=== PATIENT | female | born 1950 | race Caucasian/White ===

== ENCOUNTER → 2017-11-17 | Outpatient (CLI) | payer OTHER, BC | LOC: BHFA 13:00 | PROVIDERS: ATTEND Internal Medicine Cardiovascular Disease | DX: R07.89 Other chest pain (principal) ==

== ENCOUNTER → 2017-11-28 | Outpatient (CLI) | payer OTHER, BC | LOC: BHFA 14:00 | PROVIDERS: ATTEND Internal Medicine Cardiovascular Disease | DX: R07.89 Other chest pain (principal); R94.30 Abnormal result of cardiovascular function study, unspecified | CPT/HCPCS: 78452; 93017; A9500; J2785 ==

== ENCOUNTER 2017-12-24 09:46 | Day surgery (SDC) | payer OTHER, BC ==
[2017-12-24] MEDS ORDERED: ATROPINE SULFATE 1 MG/10 ML SYR IVP ONE (09:49)
[2017-12-24] MEDS ORDERED: MIDAZOLAM 2 MG/2 ML VIAL IVP ONE (09:49)
[2017-12-24] MEDS ORDERED: NS 500 ML IV ONE (09:49)
[2017-12-24] MEDS ORDERED: BENZOCAINE UNIT DOSE SPRAY HURRICAINE MM ONE (09:49)
[2017-12-24] MEDS ORDERED: fentaNYL 100 MCG/2 ML INJ IVP ONE (09:49)
--- NOTE | 2017-12-24 10:11 | CPEKG ---
Heart Rate: 83 RR Interval: 723 QRSD Interval: 78 QT Interval: 400 QTC Interval: 470 QRS [place]: 61 T Wave [place]: 31 EKG Severity - ABNORMAL ECG - EKG Impression: ATRIAL FIBRILLATION, V-RATE 66-97 EKG Impression: LOW VOLTAGE IN FRONTAL LEADS Electronically Signed By: Dmitri Aparicio 24-Dec-2017 11:16:38
[2017-12-24 10:36] LABS: INR 1.57 (0.83-1.16); PROTIME(PATIENT) 18.9 SEC (12.0-15.0)
[2017-12-24] MEDS ORDERED: ENOXAPARIN 80 MG/0.8 ML SYR SC ONE (11:00)
[2017-12-24] MEDS ORDERED: NALOXONE HCL 0.4 MG/ML INJ IVP PRN (11:28)
--- NOTE | 2017-12-24 11:28 | PDANEPAE ---
ANE Past Medical History - Pulmonary History Hx Sleep Apnea: No ANE Review of Systems Review of Systems: ANE Patient History - Allergies Allergies/Adverse Reactions: No Known Allergies Allergy (Unverified 12/24/17 09:49) - Home Medications Home Medications: Albuterol Sulfate 12/24/17 [Last Taken Unknown] Lipitor 12/24/17 [Last Taken 12/23/17 08:00] Sertraline HCl 12/24/17 [Last Taken 12/23/17 08:00] Warfarin Sodium PO DAILY 12/24/17 [Last Taken 12/23/17 21:00] Wellbutrin Sr 12/24/17 [Last Taken 12/23/17 08:00] - Smoking Hx Smoking Status: Former smoker ANE Labs/Vital Signs - Labs Result Diagrams: 12/24/17 10:00 - Vital Signs Height: 173 cm Weight: 78.9 kg ANE Physical Exam - Airway Neck exam: FROM Mallampati Score: Class 1 Mouth exam: dentures - Pulmonary Pulmonary: no respiratory distress, no rales or rhonchi, reduced air movement - Cardiovascular Cardiovascular: irregularly irregular - ASA Status ASA Status: III ANE Anesthesia Plan Anesthesia Plan: GA with mask
[2017-12-24] MEDS ORDERED: PROPOFOL 200 MG/20 ML VIAL ONE (11:31)
--- NOTE | 2017-12-24 11:34 | PDGENHP ---
History & Physical Chief Complaint: symptomatic afib Relevant Physical Exam: s1s2 irreg cta ao3 Cardiorespiratory Assessment: for jennifer + cv. inr subtherapeutic, pt will need to be on lovenox until inr >2
--- NOTE | 2017-12-24 19:39 | PDCONSULT ---
Artistic Director Note: Patient seen with son, sister, RN and Dr. Thomas in room. INR 1.57, will need to have Lovenox if proceeded with cardioversion. 3 options d.w. patient: 1. WHITNEY+ CV today, continue Lovenox until INR >2, warfarin terminal operations supervisor 2. Same as #1, switch to Eliquis in 6 weeks 3. Start Eliquis this evening, plan WHITNEY CV next week. Pt wants option #3, procedure cancelled for today, rescheduled for next week.
== END 2017-12-24 12:21 | disposition home or self-care (01) ==
LOC: FCATH 09:46
PROVIDERS: ATTEND Internal Medicine Cardiovascular Disease
DX: I48.1 Persistent atrial fibrillation (principal); Z53.8 Procedure and treatment not carried out for other reasons; F17.210 Nicotine dependence, cigarettes, uncomplicated; E78.5 Hyperlipidemia, unspecified
CPT/HCPCS: J0461; J1650; J2250; J2704

== ENCOUNTER 2017-12-30 09:37 | Day surgery (SDC) | payer OTHER, BC ==
[2017-12-30] MEDS ORDERED: ATROPINE SULFATE 1 MG/10 ML SYR IVP ONE (09:44)
[2017-12-30] MEDS ORDERED: NS 500 ML IV ONE (09:44)
--- NOTE | 2017-12-30 09:59 | CPEKG ---
Heart Rate: 75 RR Interval: 800 QRSD Interval: 80 QT Interval: 412 QTC Interval: 461 QRS [place]: 46 T Wave [place]: 30 EKG Severity - ABNORMAL ECG - EKG Impression: ATRIAL FIBRILLATION EKG Impression: LOW VOLTAGE IN FRONTAL LEADS Electronically Signed By: Carlos Eduardo Mcclendon 30-Dec-2017 10:37:32
[2017-12-30 10:32] LABS: INR 1.33 (0.83-1.16); PROTIME(PATIENT) 16.7 SEC (12.0-15.0)
--- NOTE | 2017-12-30 11:16 | PDGENHP ---
History & Physical Chief Complaint: symptomatic afib Relevant Physical Exam: s1s2 irreg. cta ao3 Cardiorespiratory Assessment: for jennifer cv
--- NOTE | 2017-12-30 11:36 | PDANEPAE ---
ANE Past Medical History - Cardiovascular History Hx Hypertension: No Hx Arrhythmias: Yes Hx Chest Pain: No Hx Coronary Artery / Peripheral Vascular Disease: No Hx CHF / Valvular Disease: No Hx Palpitations: No - Pulmonary History Hx COPD: No Hx Asthma/Reactive Airway Disease: Yes Hx Recent Upper Respiratory Infection: No Hx Oxygen in Use at Home: No Hx Sleep Apnea: Yes ANE Review of Systems Review of Systems: ANE Patient History - Allergies Allergies/Adverse Reactions: No Known Allergies Allergy (Verified 12/26/17 09:57) - Home Medications Home Medications: Albuterol [Proventil Inhaler HFA (*)] 1 - 2 puffs IH Q4H 12/24/17 [Last Taken Unknown] Apixaban [Eliquis] 5 mg PO BID 12/24/17 [Last Taken Unknown] Atorvastatin Calcium [Lipitor 40 mg (*)] 40 mg PO DAILY 12/24/17 [Last Taken 08:00] Sertraline HCl [Zoloft 100mg (*)] 100 mg PO DAILY 12/24/17 [Last Taken 12/23/17 08:00] buPROPion XL [Wellbutrin Xl] 150 mg PO DAILY 12/24/17 [Last Taken 12/23/17 08:00 ] Herbals/Supplements -Info Only 1 ea PO DAILY 12/26/17 [Last Taken Unknown] [place]-3 Fatty Acids [Fish Oil 1000 mg (*)] 1,000 mg PO DAILY 12/26/17 [Last Taken Unknown] - Smoking Hx Smoking Status: Former smoker ANE Labs/Vital Signs - Labs Result Diagrams: 12/30/17 09:58 - Vital Signs Height: 172.72 cm Weight: 77.111 kg ANE Physical Exam - Airway Neck exam: FROM Mallampati Score: Class 2 Mouth exam: dentures - Pulmonary Pulmonary: no respiratory distress - Cardiovascular Cardiovascular: irregularly irregular - ASA Status ASA Status: III ANE Anesthesia Plan Anesthesia Plan: GA with mask Total IV Anesthesia: Yes
[2017-12-30] MEDS ORDERED: PROPOFOL 200 MG/20 ML VIAL ONE (11:43)
[2017-12-30] MEDS ORDERED: LIDOCAINE 1% 5 ML SDV ONE (11:43)
--- NOTE | 2017-12-30 12:16 | PDTEE1 ---
WHITNEY Cardioversion Procedure Procedure: electrical cardioversion, transesophageal echo Indications: atrial fibrillation Consent: signed and in chart Anticoagulation: eliquis Procedural Details: Pads were placed in anterior-posterior position. WHITNEY probe was advanced and standard images obtained. There is no evidence of left atrial or left atrial appendage thrombus. Synchronized cardioversion attempt #1: 200J Results: normal sinus rhythm Conclusions: successful WHITNEY cardioversion (Patient had hypoxia with anesthesia induction requiring Ambu bag. Therefore WHITNEY was abbreviated. TTE was done to assess MR, TR and LV function after WHITNEY.) Patient Problems: Problems Problem Status Onset Atrial fibrillation Acute
--- NOTE | 2017-12-30 12:41 | CPEKG ---
Heart Rate: 71 RR Interval: 845 P-R Interval: 236 QRSD Interval: 82 QT Interval: 428 QTC Interval: 466 P [place]: 75 QRS [place]: 40 T Wave [place]: 34 EKG Severity - ABNORMAL ECG - EKG Impression: SINUS RHYTHM EKG Impression: ATRIAL PREMATURE COMPLEX EKG Impression: FIRST DEGREE AV BLOCK EKG Impression: LOW VOLTAGE IN FRONTAL LEADS Electronically Signed By: Dmitri Aparicio 30-Dec-2017 12:44:45
--- NOTE | 2017-12-30 12:46 | POSTANESTH ---
Post Anesthetic Evaluation Cardiovascular Status: Normal, Stable Respiratory Status: Similar to Pre-op Cond. Level of Consciousness/Mental Status: Can Participate in Eval Pain Control: Adequate, Prn Tx Ordered Nausea/Vomiting Control: Adequate, Prn Tx Ordered Complications Possibly Related to Anesthesia: None Noted
--- NOTE | 2018-02-10 17:02 | ECHO ---
[email or web address] [address] [address] Main: [phone] Fax: Transesophageal Echocardiography Name: GLORIA WESTFALL MR#: [id number] Study Date: 12/30/2017 Study Time: 11:47 AM Date of : 1950 Age: 67 year(s) Height: 172.7 cm (68 in.) Weight: 78.93 kg (174 lb.) BSA: 1.93 m2 Gender: Female Examination: WHITNEY Indication: Pre Cardioversion Image Quality: Contrast: Requested by: Dmitri Aparicio Heart Rate: Rhythm: Atrial fibrillation BP: 129 mmHg/89 mmHg Procedure Staff Land Leveler: Riky Mejia RDCS Reading Physician: Dmitri Aparicio MD Requesting Provider: WHITNEY Exam Details Measurements: Chambers Valvular Assessment AV/MV Valvular Assessment TV/PV Normal Normal Normal Name Value Range Name Value Range Name Value Range Ao Guillermina (MM): 2.6 cm (2.2 cm-3.7 AV Vmax: 1.21 m/s (1 m/s-1.7 TR Vmax: 3.79 mm/s ( - ) cm) m/s) TR PGmax: 57 mmHg ( - ) IVSd (2D): 0.8 cm (0.6 cm-1.1 AV maxP mmHg ( - ) syst. PAP: 67 mmHg ( - ) cm) LVOT Vmax: 0.81 m/s (0.7 m/s-1.1 PV Vmax: 0.81 m/s (0.6 m/s-0.9 LVDd (2D): 3.8 cm (3.9 cm-5.3 m/s) m/s) cm) MV E Vmax: 0.93 m/s ( - ) PV PGmax: 3 mmHg ( - ) LVDs (2D): 2.1 cm (2.1 cm-4 MV A Vmax: 0.30 m/s ( - ) cm) MV E/A: 3.10 ( - ) LVPWd (2D): 1.1 cm ( - ) LVEF (2D): 78 (>=54 %) Additional Measurements: Chambers Valvular Assessment AV/MV Valvular Assessment TV/PV Name Value Name Value Name Value LADs Lon.6 cm MV E' Septal: 0.06 m/s CVP (est.): 10 mmHg LA Area: 19.4 cm2 MV E/E' Septal: 15.10 LA Volume: 62 ml MV E/E' Lateral: 10.00 LA Volume Index: 32.1 ml/m2 Patient: GLORIA WESTFALL Study Date: 12/30/2017 Page 1 of 2 11:47 AM Findings: Left Ventricle: Normal size left ventricle. No LV hypertrophy. Normal global systolic LV function. EF is 78 %. The ejection fraction, measured in 2D mode, is 78 %. No regional wall motion abnormality. Right Ventricle: Mildly dilated right ventricle. Normal RV function. Left Atrium: Spontaneous contrast in the left atrium. The left atrium is at the upper limits of normal.. Left Atrial Appendage: Good color flow doppler in the left atrial appendage. No thrombus in left appendage. Right Atrium: The right atrium is mildly dilated. Mitral Valve: The mitral valve is normal in appearance. Mild mitral valve regurgitation is present. Aortic Valve: The aortic valve is tri-leaflet and functions normally. Tricuspid Valve: The tricuspid valve is normal in appearance and function. Mild tricuspid regurgitation is present. The pulmonary artery pressure is moderately to severely increased. Pulmonic Valve: The pulmonic valve is normal in appearance and function. Aorta: The aorta is normal. Pericardium: No pericardial effusion. Exam Comments: This is a limited WHITNEY exam with TTE exam post cardioversion. The WHITNEY was limited due to pulmonary distress during exam. The left atrial appendage was examined during the WHITNEY phase of the exam. Proceeded with successful elective DC cardioversion. Post cardioversion TTE images confirmed a normal LVEF with a dilated right heart and moderate to severe pulmonary hypertension. l1n (No Signature Object) Patient: GLORIA WESTFALL Study Date: 12/30/2017 Page 2 of 2 11:47 AM [id number]
== END 2017-12-30 13:57 | disposition home or self-care (01) ==
LOC: FCATH 09:37
PROVIDERS: ATTEND Internal Medicine Cardiovascular Disease
PROC: 5A2204Z Restoration of Cardiac Rhythm, Single (ICD-10-PCS; principal; 2017-12-30)
DX: I48.1 Persistent atrial fibrillation (principal); E78.5 Hyperlipidemia, unspecified
CPT/HCPCS: J2704

== ENCOUNTER → 2018-10-28 | Outpatient (CLI) | payer OTHER, BC | LOC: FIMAGING 11:00 | PROVIDERS: ATTEND Internal Medicine Critical Care Medicine | DX: J44.9 Chronic obstructive pulmonary disease, unspecified (principal) ==